=== PATIENT | female | born 1995 | race Caucasian/White ===

== ENCOUNTER 2018-06-19 15:11 | Observation (INO) ==
[2018-06-19] MEDS ORDERED: MAGNESIUM SULFATE IN WATER 50 ML, MAGNESIUM SULFATE IN WATER 50 ML IV ONE ×2 (17:27)
[2018-06-19] MEDS ORDERED: MAGNESIUM SULFATE IN WATER 1,000 ML IV SCH (17:30)
[2018-06-19] MEDS ORDERED: BETAMETHASONE ACETATE,SOD PHOS 6 MG/ML VIAL IM ONE (18:00)
--- NOTE | 2018-06-19 18:05 | HP ---
Chief Complaint - Chief Complaint Date of Service: 06/19/18 Time of Service: 17:41 Chief Complaint: Preeclampsia History of Present Illness: 22 yo at 32 5/7 wk confirmed with 1st trimester ultrasound admitted to L&D for further evaluation/tx for preeclampsia with severe features. Patient was diagnosed with preeclampsia at 30 wks and has been getting close follow-up as outpatient. Today during her routine appt/NST her BP was 166/99. Serial BPs ranged from 140s-160s/70s-90s. CBC and CMP were WNL. In L&D her BPs over 1 hour were 168/95, 166/78, 167/115, 151/109, 135/68, 130/63, 136/72. She denies headache, visual changes, or epigastric pain. This complicated by 1st trimester THC and tobacco use, recurrent UTI (on daily supressive Macrodantin 50mg PO qHS), and preeclampsia diagnosed at 30wks, anxiety/depression, migraines, and h/o kidney stones. Medical History (Last Reviewed 06/19/18 @ 17:54 by To Lazaro DO) Abnormal Pap smear of cervix Onset Date: ~11/2017 Anxiety Onset Date: Unknown Body piercing Depression Onset Date: Unknown Kidney stones Onset Date: ~11/2017 Panic attacks Onset Date: Unknown Pre-eclampsia affecting , antepartum Onset Date: 06/08/18 Tattoos Wears glasses Acute suppurative otitis media of left ear without spontaneous rupture of ear drum Onset Date: 08/09/17 Irregular heart beat Onset Date: ~2014 ECHO-no current problems Ovarian cyst Onset Date: 12/22/17 Ruptured [place] teeth extracted Onset Date: ~2014 Family History: Family History (Last Reviewed 06/19/18 @ 17:54 by To Lazaro DO) Father Graves disease Grandfather CAD (coronary artery disease) Grandmother Colon cancer Grandmother Cancer Mother Alive and well Social History: Preferred Language Croatian Abuse History No History of abuse Psych History No pertinent hx,Hx of Depression (Last Updated 06/15/18 @ 15:01 by Ruth Guerrero MD) No Social History Section defined Review Of Systems (GEN) - Review of Systems EENTM: Present: No Symptoms Reported Respiratory: Present: No Symptoms Reported Cardiac: Present: No Symptoms Reported Abdominal: Present: No Symptoms Reported Genitourinary: Present: No Symptoms Reported Musculoskeletal: Present: No Symptoms Reported Neurological: Present: No Symptoms Reported Skin: Present: No Symptoms Reported Immunizations: IMMUNIZATION HX Immunizations Up to Date Yes Allergies/Adverse Reactions: Allergies Allergy/AdvReac Type Severity Reaction Status Date / Time No Known Allergies Allergy Verified 06/19/18 13:11 Home Medications: HOME MEDICATIONS Sertraline HCl [Zoloft] 50 mg PO DAILY 12/23/17 [Last Taken Unknown] vitamin,calcium,koigpqzv-ecco-zecbg acid tablet 1 tab PO DAILY 04/06/18 [Last Taken Unknown] nitrofurantoin macrocrystal 50 mg capsule 50 mg PO HS #30 cap 06/05/18 [Last Taken Unknown] ferrous sulfate 325 mg (65 mg iron) tablet 325 mg PO DAILY tab 06/12/18 [Last Taken Unknown] magnesium 250 mg tablet 1,000 mg PO DAILY tab 06/12/18 [Last Taken Unknown] Exam - Exam Vital Signs: Vital Signs - Last Taken Temp 37.1 C 06/19/18 16:57 Pulse 86 06/19/18 16:57 Resp 18 06/19/18 16:57 BP 136/72 06/19/18 17:00 Pulse Ox 98 06/19/18 16:57 Constitutional: Present: Alert, Oriented x3, Cooperative ENT Exam: Present: hearing grossly normal Neck: Present: supple Back Exam: Present: no CVA tenderness Breasts: Present: Exam deferred Respiratory: Present: lungs clear, no respiratory distress Cardiovascular/Chest: Present: normal peripheral pulses, regular rate, rhythm, edema - 1+ Abdomen: Present: soft, nontender, no rebound tenderness, other - gravid /Rectal: Present: Exam deferred Extremity: Present: non-tender, no calf tenderness, lower extremity edema - 1-2+ Skin Exam: Present: normal color, warm/dry, no cyanosis Neurologic: Present: alert, normal mood/affect, oriented x 3 Appearance: Present: appropriate appearance Eye contact: Present: cooperative, good eye contact, normal speech Thoughts: Present: normal thought pattern Assessment/Plan - Assessment/Plan (1) Preeclampsia Assessment: Severe features by labile intermittent elevated BPs. Discussed with Dr. Rick Shabazz who is willing to accept transport to [facility] for further evaluation/tx. Will transport via ambulance on magnesium sulfate (6g load, 2g/h) and give one dose of betamethasone 12mg IM prior to transport. Problem: Acute Qualifiers: Trimester: third trimester Qualified Code(s): O14.93 - Unspecified pre- eclampsia, third trimester (2) Anxiety with depression Assessment: controlled on sertaline 50mg/d. Problem: Chronic (3) Migraines Assessment: controlled on magnesium 1000mg PO daily. Problem: Chronic Qualifiers: Migraine type: unspecified Status migrainosus presence: without status migrainosus Intractability: not intractable Qualified Code(s): G43.909 - Migraine, unspecified, not intractable, without status migrainosus (4) Recurrent UTI (urinary tract infection) complicating Assessment: Tx'd. On macrodantin 50mg PO qHS. Problem: Acute Qualifiers: Trimester: unspecified trimester Qualified Code(s): O23.40 - Unspecified infection of urinary tract in , unspecified trimester
[2018-06-19 18:35] VITALS: BP 158/114
== END 2018-06-19 18:20 | disposition short-term general hospital (02) ==
LOC: OB 15:11 → RAD 15:11
PROVIDERS: ADMIT Obstetrics & Gynecology; ATTEND Obstetrics & Gynecology
DX: G43.909 Migraine, unspecified, not intractable, without status migrainosus; F41.8 Other specified anxiety disorders; O23.43 Unspecified infection of urinary tract in pregnancy, third trimester; Z3A.33 33 weeks gestation of pregnancy; O99.331 Smoking (tobacco) complicating pregnancy, first trimester; O14.13 Severe pre-eclampsia, third trimester; O99.343 Other mental disorders complicating pregnancy, third trimester
CPT/HCPCS: 59025; 76816; 96365; 96372; G0378